=== PATIENT | male | born 1960 | race Hispanic/Latino ===

== ENCOUNTER 2021-02-10 00:49 | Inpatient (IN) | payer OTHER ==
[~2021-02-10] VITALS: Ht 185.4 cm; Wt 312.3 kg
[2021-02-10] VITALS (10 sets, daily range): BP systolic 76–116; BP diastolic 46–72
[2021-02-10 01:44] LABS: HEMATOCRIT 38.8 % (42-54); LYMPHOCYTES % (AUTO) 23.6 % (21.0-51.0); MEAN CORPUSCULAR HEMOGLOBIN 28.8 pg (27.0-33.0); MEAN CORPUSCULAR HGB CONC 31.2 g/dL (32.0-36.0); MEAN CORPUSCULAR VOLUME 92.4 fL (79-99); MONOCYTES % (AUTO) 4.1 % (3.0-13.0); NEUTROPHILS % (AUTO) 70.9 % (40.0-77.0); NUCLEATED RED BLOOD CELLS 2.7 % (0.0-0.19); PLATELET COUNT (AUTO) 148 K/uL (130-400); RED CELL DISTRIBUTION WIDTH 16.2 % (11.0-15.5); WHITE BLOOD COUNT (AUTO) 1.5 K/uL (4.8-10.8)
[2021-02-10 01:50] LABS: CREATININE 2.3 mg/dL (0.5-1.5); POTASSIUM 3.2 mmol/L (3.5-5.1)
[2021-02-10 02:23] LABS: ALBUMIN 2.4 g/dL (3.5-5.0); BILIRUBIN,TOTAL 1.6 mg/dL (0.2-1.0); INR 1.39 (0.85-1.15); PROTHROMBIN TIME 14.7 SEC (9.6-11.6); TOTAL PROTEIN, SERUM 7.6 g/dL (6.0-8.3)
[2021-02-10 02:24] LABS: PARTIAL THROMBOPLASTIN TIME 33.9 SEC (26.3-35.5)
[2021-02-10 02:28] LABS: TROPONIN I 0.04 ng/mL (0.00-0.06)
[2021-02-10] MEDS ORDERED: NOREPINEPHRIN 4MG/NS 250ML 250 ML IV SCH (02:30)
[2021-02-10] MEDS ORDERED: ZOSYN 3.375GM+NS 50ML 50 ML IV ONE ×2 (02:39→10:11)
[2021-02-10] MEDS ORDERED: VANCOMYCIN 1G/250ML KIT 500 ML IV ONE (02:39)
[2021-02-10] MEDS ORDERED: FENTANYL CITRATE PF 50 MCG/1 ML 2ML VIAL ONE (02:59)
[2021-02-10] MEDS ORDERED: VANCOMYCIN 1G/250ML KIT 250 ML IV SCH (03:00)
[2021-02-10] MEDS ORDERED: GUAIFENESIN-DM 200/20 MG 10 ML PO PRN (03:00)
[2021-02-10] MEDS ORDERED: MAG/ALUM/SIMETH 30 ML UDCUP PO PRN (03:00)
[2021-02-10] MEDS ORDERED: ACETAMINOPHEN 325 MG TAB PO PRN ×2 (03:00)
[2021-02-10] MEDS ORDERED: NITROGLYCERIN 0.4 MG SL TAB SL PRN (03:00)
[2021-02-10] MEDS ORDERED: DIPHENHYDRAMINE HCL 25 MG CAPSULE PO PRN (03:00)
[2021-02-10] MEDS ORDERED: VANCOMYCIN PROTOCOL PER PHARMACY IV PRN (03:00)
[2021-02-10] MEDS ORDERED: LACTULOSE 20 GM/30 ML UDCUP PO PRN (03:00)
[2021-02-10] MEDS ORDERED: ONDANSETRON 4MG INJ IV PRN (03:00)
[2021-02-10] MEDS ORDERED: DiphenhydrAMINE HCL 50 MG/ML VIAL IV PRN (03:00)
[2021-02-10] MEDS ORDERED: RENAL DOSE IV SCH (03:15)
[2021-02-10] MEDS ORDERED: NOREPINEPHRIN 4MG/NS 250ML 250 ML IV ONE ×5 (03:34→06:59)
[2021-02-10 03:46] LABS: ABG HCO3 13.5 mmol/L (21.0-28.0); ABG OXYGEN SATURATION 91.6 % (95.0-99.0); ABG PCO2 41 mmHg (35-48)
[2021-02-10] MEDS: ZOSYN 3.375GM+NS 50ML 50 ML IV SCH ×3 (05:00→21:26)
[2021-02-10] MEDS ORDERED: VANCOMYCIN PROTOCOL PER PHARMACY IV SCH (06:30)
[2021-02-10] MEDS ORDERED: 0.9% NACL 250ML 250 ML IV ONE (07:30)
[2021-02-10] MEDS ORDERED: NOREPINEPHRINE BITARTRATE 1 MG/1 ML ML IV ONE (07:30)
[2021-02-10] MEDS ORDERED: COMPOUND IV REFRIGERATED 1 EACH IVSOLN MISC PRN (07:45)
[2021-02-10] MEDS ORDERED: SODIUM BICARB 50MEQ 50ML VIAL 50 ML ONE (07:55)
[2021-02-10] MEDS ORDERED: NOREPINEPHRINE BITARTRATE 32 MG in 0.9% NACL 250ML 250 ML IV SCH (08:30)
[2021-02-10 08:34] LABS: BASOPHILS % (AUTO) 2.1 % (0.0-5.0); EOSINOPHILS % (AUTO) 1.3 % (0.0-8.0); HEMATOCRIT 42.2 % (42-54); LYMPHOCYTES % (AUTO) 16.1 % (21.0-51.0); MEAN CORPUSCULAR HEMOGLOBIN 29.1 pg (27.0-33.0); MEAN CORPUSCULAR VOLUME 93.8 fL (79-99); MONOCYTES % (AUTO) 2.4 % (3.0-13.0); NEUTROPHILS % (AUTO) 76.5 % (40.0-77.0); NUCLEATED RED BLOOD CELLS 3.4 % (0.0-0.19); PLATELET COUNT (AUTO) 138 K/uL (130-400); RED CELL DISTRIBUTION WIDTH 16.4 % (11.0-15.5); WHITE BLOOD COUNT (AUTO) 3.8 K/uL (4.8-10.8)
[2021-02-10] MEDS ORDERED: MAGNESIUM 2GM PREMIX 50ML 50 ML IV SCH ×2 (08:45→09:30)
[2021-02-10 08:51] LABS: ALBUMIN 2.3 g/dL (3.5-5.0); BILIRUBIN,TOTAL 1.6 mg/dL (0.2-1.0); CREATININE 2.4 mg/dL (0.5-1.5); PHOSPHORUS 4.7 mg/dL (2.5-4.9); POTASSIUM 3.3 mmol/L (3.5-5.1); TOTAL PROTEIN, SERUM 6.4 g/dL (6.0-8.3)
[2021-02-10] MEDS ORDERED: DEXTROSE 50%-WATER 50 ML DISP.SYRIN IV ONE ×3 (08:58→10:37)
[2021-02-10] MEDS ORDERED: FAMOTIDINE 20MG VIAL IV SCH (09:00)
[2021-02-10] MEDS ORDERED: VANCOMYCIN IV SCH (09:00)
[2021-02-10] MEDS: HEPARIN 5,000 UNIT VIAL SQ SCH ×2 (09:00→17:23)
[2021-02-10] MEDS ORDERED: NACL 0.9% IV SCH (09:00)
[2021-02-10] MEDS ORDERED: GLUCAGON 1MG KIT 1 MG ML IM PRN (09:15)
[2021-02-10] MEDS ORDERED: DEXTROSE 50%-WATER 50 ML DISP.SYRIN IV PRN (09:15)
[2021-02-10] MEDS ORDERED: 0.9%NACL 1000ML 1,000 ML IV ONE (09:28)
[2021-02-10] MEDS: CLINDAMYCIN IVPB 600MG/50ML 50 ML IV SCH ×3 (09:30→21:27)
[2021-02-10] MEDS ORDERED: VASOPRESSIN 40 UNITS in 0.9%NACL 50ML 40 ML IV SCH (09:30)
[2021-02-10] MEDS ORDERED: KCL 20 MEQ ERTAB PO SCH (09:30)
[2021-02-10] MEDS ORDERED: DEXTROSE 5 % AND 0.9 % NACL 1,000 ML IV SCH (09:30)
[2021-02-10] MEDS ORDERED: MAGNESIUM 2GM PREMIX 50ML 50 ML IV ONE (09:47)
[2021-02-10] MEDS ORDERED: DEXTROSE 5 % AND 0.9 % NACL 1,000 ML IV ONE (09:48)
[2021-02-10 10:01] LABS: BAND NEUTROPHILS % (MANUAL) 48 % (0-2); EOSINOPHILS % (MANUAL) 3 % (1-6); LYMPHOCYTES % (MANUAL) 12 % (22-44); MONOCYTES % (MANUAL) 15 % (2-9); OTHER CELLS,MANUAL % 1 (0-0); REACTIVE LYMPHOCYTES 2 % (0-0); SEGMENTED NEUTROPHILS % 19 % (40-70)
[2021-02-10 10:02] LABS: MAN.DIFF COMMENT-IMPRESSION MANUAL DIFFERENTIAL; PLATELET MORPHOLOGY COMMENT ADEQUATE
[2021-02-10] MEDS ORDERED: CLINDAMYCIN IVPB 600MG/50ML 50 ML IV ONE (10:10)
[2021-02-10] MEDS ORDERED: HEPARIN 5,000 UNIT VIAL ONE (10:10)
[2021-02-10] MEDS ORDERED: FAMOTIDINE 20MG VIAL IV ONE (10:10)
[2021-02-10] MEDS ORDERED: KCL 20 MEQ ERTAB PO ONE (10:11)
[2021-02-10] MEDS ORDERED: SODIUM BICARBONATE 650 MG TAB PO SCH (10:15)
[2021-02-10] MEDS: SODIUM BICARBONATE 650 MG TAB PO SCH ×2 (10:30→21:26)
[2021-02-10 10:47] LABS: ABG BASE EXCESS -16.4 mmol/L (-2.0-3.0); ABG HCO3 11.1 mmol/L (21.0-28.0); ABG PCO2 32 mmHg (35-48)
[2021-02-10] MEDS: HYDROCORTISONE SOD SUCCINATE 100 MG/2 ML VIAL IV SCH ×2 (12:00→18:09)
[2021-02-10] MEDS ORDERED: PHENYLEPHRINE HCL 100 MG in 0.9% NACL 250ML 250 ML IV SCH (12:01)
[2021-02-10] MEDS ORDERED: SODIUM BICARB 8.4% 50ML SYRINGE IVP SCH (12:01)
[2021-02-10] MEDS ORDERED: SODIUM BICARB 50MEQ 50ML VIAL 100 ML ONE (12:02)
[2021-02-10] MEDS ORDERED: NACL 23.4% (4MEQ/ML) 30ML VIAL 154 MEQ in DEXTROSE 10%-WATER 961.5 ML IV SCH (12:08)
[2021-02-10] MEDS: LACTATED RINGERS 1000ML 1,000 ML IV SCH ×3 (13:00→17:21)
[2021-02-10 13:37] LABS: ABG BASE EXCESS -16.5 mmol/L (-2.0-3.0); ABG HCO3 11.4 mmol/L (21.0-28.0); ABG OXYGEN SATURATION 94.1 % (95.0-99.0); ABG PCO2 34 mmHg (35-48)
[2021-02-10 13:53] LABS: POTASSIUM 3.9 mmol/L (3.5-5.1)
[2021-02-10] MEDS ORDERED: FLUCONAZOLE 200 MG/NS 100 ML 100 ML IV SCH (16:00)
[2021-02-10] MEDS ORDERED: FUROSEMIDE 40MG VIAL IV SCH (16:14)
[2021-02-10] MEDS: HYDROMORPHONE 1 MG INJ IVP PRN ×3 (16:26→21:25)
[2021-02-10] MEDS: LINEZOLID 600 MG/ISO-OSM 300 ML IV SCH (17:22)
[2021-02-10] MEDS ORDERED: ASPIRIN 81MG CHEW TAB PO SCH (17:45)
[2021-02-10] MEDS ORDERED: PHARMACY COMMUNICATION MISC SCH ×3 (17:45→20:30)
[2021-02-10] MEDS ORDERED: HEPARIN 25,000 UNITS/250ML D5W 250 ML IV PRN (17:45)
[2021-02-11] VITALS: BP 91/56
[2021-02-11] MEDS ORDERED: HYDROMORPHONE 2 MG VIAL (2MG/ML) IVP PRN (00:15)
[2021-02-11 01:00] VITALS: BP 88/45
[2021-02-11 01:15] VITALS: BP 75/28
[2021-02-11] MEDS: LINEZOLID 600 MG/ISO-OSM 300 ML IV SCH (01:16)
[2021-02-11] MEDS: LACTATED RINGERS 1000ML 1,000 ML IV SCH (01:16)
[2021-02-11] MEDS: HYDROCORTISONE SOD SUCCINATE 100 MG/2 ML VIAL IV SCH ×2 (01:16→06:00)
[2021-02-11 02:00] VITALS: BP 60/24
[2021-02-11] MEDS: ZOSYN 3.375GM+NS 50ML 50 ML IV SCH (05:00)
[2021-02-11] MEDS: CLINDAMYCIN IVPB 600MG/50ML 50 ML IV SCH (05:59)
[2021-02-11] MEDS ORDERED: ASPIRIN 81MG CHEW TAB PO SCH (09:00)
== END 2021-02-11 02:26 | disposition expired | DRG 871 ==
LOC: EDH 00:49 → EDHIP 02:54 → 2DH 14:40
PROVIDERS: ADMIT Family Medicine; ATTEND Family Medicine
PROC: 5A09357 Assistance with Respiratory Ventilation, Less than 24 Consecutive Hours, Continuous Positive Airway Pressure (ICD-10-PCS; principal; 2021-02-11)
DX: A41.9 Sepsis, unspecified organism (principal); J18.9 Pneumonia, unspecified organism; J96.00 Acute respiratory failure, unspecified whether with hypoxia or hypercapnia; R65.21 Severe sepsis with septic shock; E87.2 Acidosis; L03.115 Cellulitis of right lower limb; L03.116 Cellulitis of left lower limb; M62.82 Rhabdomyolysis; N17.9 Acute kidney failure, unspecified; Z68.45 Body mass index [BMI] 70 or greater, adult; D69.6 Thrombocytopenia, unspecified; D72.810 Lymphocytopenia; E86.1 Hypovolemia; E87.6 Hypokalemia; H54.7 Unspecified visual loss; I10 Essential (primary) hypertension; I46.9 Cardiac arrest, cause unspecified; Z66 Do not resuscitate; Z74.01 Bed confinement status; I73.9 Peripheral vascular disease, unspecified
CPT/HCPCS: 36415; 36600; 71045; 76770; 76882; 80053; 82435; 82550; 82803; 82947; 82948; 83605; 83735; 83874; 84100; 84132; 84145; 84295; 84484; 85018; 85025; 85060; 85610; 85651; 85730; 86140; 87040; 93005; 93925; 93970; 94660; J1170; J1450; J1644; J1720; J1940; J2020; J2370; J2543; J3010; J3370; J3475; J3490; J7030; J7040; J7042; J7050; J7070; J7120; J7131